=== PATIENT | female | born 1945 | race Caucasian/White ===

== ENCOUNTER 2018-05-05 07:42 | Outpatient (CLI) | payer OTHER | END 2018-05-05 07:51 | disposition home or self-care (01) | LOC: TOM 07:42 | DX: K63.5 Polyp of colon (principal) ==

== ENCOUNTER 2018-11-16 10:25 | Outpatient (CLI) | payer OTHER | END 2018-11-16 10:36 | disposition home or self-care (01) | LOC: RAD 10:25 | DX: M17.0 Bilateral primary osteoarthritis of knee (principal); M76.52 Patellar tendinitis, left knee ==